=== PATIENT | female | born 1980 | race Caucasian/White ===

== ENCOUNTER 2016-09-03 15:48 | Emergency (ER) | payer MEDICARE, MEDICAID ==
[~2016-09-03] VITALS: Ht 170.2 cm; Wt 99.8 kg
[2016-09-03] MEDS ORDERED: IOHEXOL 350 MG/ML 100ML IJ ONE (23:07)
[2016-09-03 23:50] LABS: Basophils # (auto) 0.1 uL; Basophils % (auto) 0.4 % (0.0-2.0); Eosinophils # (auto) 0.3 uL; Eosinophils % (auto) 1.9 % (0.0-7.0); Hematocrit 41.4 % (36.0-46.0); Hemoglobin 13.1 g/dL (12.2-16.2); Lymphocytes # (auto) 3.5 uL; Lymphocytes % (auto) 25.2 % (10.0-50.0); Mean Corpuscular Hemoglobin 27.8 pg (28.0-32.0); Mean Corpuscular Hgb Conc. 31.6 g/dL (32.0-36.0); Mean Corpuscular Volume 87.9 fL (80.0-100.0); Mean Platelet Volume 7.7 fL (7.4-10.4); Monocytes # (auto) 0.6 uL; Monocytes % (auto) 4.4 % (0.0-12.0); Neutrophils # (auto) 9.6 uL; Neutrophils % (auto) 68.1 % (37.0-80.0); Platelet Count (auto) 410 10^3/uL (140-450); Red Cell Distribution Width 13.9 % (11.6-16.0); White Blood Cell 14.1 10^3/uL (4.4-10.8)
[2016-09-04 00:06] LABS: Albumin 3.6 g/dL (3.4-5.0); BUN/Creatinine Ratio 19.6; Calcium 8.8 mg/dL (8.5-10.1)
[2016-09-04 00:09] LABS: Bilirubin, Total 0.4 mg/dL (0.2-1.0); Total Protein 7.4 g/dL (6.4-8.2)
[2016-09-04 00:11] LABS: Potassium 2.9 mmol/L (3.5-5.1)
[2016-09-04 00:27] LABS: INR 1.04 (0.9-1.15); Prothrombin Time 10.7 sec (9.37-12.3)
[2016-09-04] MEDS ORDERED: TRAM50TA2 PO (00:54)
[2016-09-04] MEDS ORDERED: ACYC400T GT (00:54)
[2016-09-04] MEDS ORDERED: HYDR25TA4 PO (00:54)
[2016-09-04] MEDS ORDERED: LOSA100T27 PO (00:54)
[2016-09-04] MEDS ORDERED: POTASSIUM CHL 20 Meq TABLET PO ONE (02:00)
[2016-09-04] MEDS ORDERED: ONDANSETRON HCL 4 MG/2 ML VIAL IV ONE (02:00)
[2016-09-04] MEDS ORDERED: SODIUM CHLORIDE 0.9% 1,000 ML IV ONE (02:00)
[2016-09-04 06:15] VITALS: BP 117/84
== END 2016-09-04 06:40 | disposition home or self-care (01) ==
LOC: ER 16:06
DX: J06.9 Acute upper respiratory infection, unspecified (principal); J45.901 Unspecified asthma with (acute) exacerbation; E03.9 Hypothyroidism, unspecified; I10 Essential (primary) hypertension; Z88.6 Allergy status to analgesic agent; Z79.899 Other long term (current) drug therapy
CPT/HCPCS: 36415; 71260; 80053; 84443; 85025; 85379; 85610; 93005; 96361; 96374; 99285; J2405; Q9967

== ENCOUNTER 2016-12-09 12:07 | Emergency (ER) | payer MEDICARE, MEDICAID ==
[~2016-12-09] VITALS: Ht 162.6 cm; Wt 106.1 kg
[~2016-12-09 12:07] MED LIST: ACYC400T GT; HYDR25TA4 PO; LOSA100T27 PO; TRAM50TA2 PO
[2016-12-09 13:17] LABS: Basophils # (auto) 0.1 uL; Basophils % (auto) 0.5 % (0.0-2.0); Eosinophils # (auto) 0.3 uL; Eosinophils % (auto) 1.9 % (0.0-7.0); Hematocrit 42.7 % (36.0-46.0); Hemoglobin 14.2 g/dL (12.2-16.2); Lymphocytes # (auto) 3.8 uL; Lymphocytes % (auto) 28.9 % (10.0-50.0); Mean Corpuscular Hemoglobin 29.5 pg (28.0-32.0); Mean Corpuscular Hgb Conc. 33.2 g/dL (32.0-36.0); Mean Corpuscular Volume 88.8 fL (80.0-100.0); Monocytes # (auto) 0.6 uL; Monocytes % (auto) 4.2 % (0.0-12.0); Neutrophils # (auto) 8.6 uL; Neutrophils % (auto) 64.5 % (37.0-80.0); Platelet Count (auto) 384 10^3/uL (140-450); Red Cell Distribution Width 14.2 % (11.6-16.0); White Blood Cell 13.3 10^3/uL (4.4-10.8)
[2016-12-09 13:35] LABS: Albumin 3.5 g/dL (3.4-5.0); BUN/Creatinine Ratio 12.2; Calcium 8.7 mg/dL (8.5-10.1); Potassium 3.9 mmol/L (3.5-5.1)
[2016-12-09 13:38] LABS: Bilirubin, Total 0.2 mg/dL (0.2-1.0); Total Protein 7.3 g/dL (6.4-8.2)
[2016-12-09 14:23] LABS: Urine Bilirubin Negative (Negative); Urine Blood Negative /uL (Negative); Urine Color Yellow (Yellow); Urine Glucose Normal (Normal); Urine Ketone Negative (Negative); Urine Nitrite Negative (Negative); Urine RBC <1 /hpf (0 - 4); Urine Squamous Epithelial Cell FEW /hpf (<5); Urine Urobilinogen Normal (Negative)
[2016-12-09] MEDS ORDERED: METOCLOPRAMIDE HCL 5MG/ml INJ 2ml VIAL IV ONE (15:00)
[2016-12-09] MEDS ORDERED: MORPHINE SULFATE 4 MG/ML SYRG IM ONE (15:00)
[2016-12-09] MEDS ORDERED: SODIUM CHLORIDE 0.9% 1,000 ML IV ONE (15:00)
[2016-12-09] MEDS ORDERED: MORPHINE SULFATE 4 MG/ML SYRG IV ONE (15:30)
[2016-12-09] MEDS ORDERED: IOHEXOL 300 MG/ML 100ML BOTTLE IJ ONE (16:45)
[2016-12-09 17:59] VITALS: BP 129/87
== END 2016-12-09 19:27 | disposition home or self-care (01) ==
LOC: ER 12:07
DX: K52.9 Noninfective gastroenteritis and colitis, unspecified (principal); K21.9 Gastro-esophageal reflux disease without esophagitis; I10 Essential (primary) hypertension; E07.89 Other specified disorders of thyroid; Z90.710 Acquired absence of both cervix and uterus; Z90.89 Acquired absence of other organs; Z88.6 Allergy status to analgesic agent; Z88.8 Allergy status to other drugs, medicaments and biological substances
CPT/HCPCS: 36415; 74177; 80053; 81001; 81025; 82150; 83690; 84484; 85025; 94761; 96361; 96374; 96375; 99285; J2270; J2765; J7030; Q9967; 96360